=== PATIENT | female | born 1945 | race Hispanic/Latino ===

== ENCOUNTER 2018-06-15 09:13 | Observation (INO) | payer MEDICARE, BC ==
[2018-06-15 09:13] VITALS: BMI 21.9
[2018-06-15] MEDS ORDERED: Sodium Chloride 0.9% 1,000 ML IV ONE (09:38)
[2018-06-15] MEDS ORDERED: levETIRAcetam 500 MG in Sodium Chloride 0.9% 100 ML IVPB ONE (10:00)
[2018-06-15] MEDS ORDERED: Sodium Chloride 0.9% 1,000 ML ONE (10:21)
[2018-06-15 10:39] LABS: BASO % 0.7 % (0.0-2.0); EOS # 0.1 K/uL (0.0-0.7); EOS % 1.1 % (0.0-4.0); HEMOGLOBIN 12.6 g/dL (11.0-16.0); LYMPH # 1.5 K/uL (1.0-4.3); LYMPH % 26.1 % (20.0-40.0); MEAN CELL VOLUME 96.7 fL (81.0-99.0); MEAN CORPUSCULAR HEMOGLOBIN 32.6 pg (27.0-31.0); MEAN CORPUSCULAR HGB CONC 33.7 g/dL (33.0-37.0); MEAN PLATELET VOLUME 9.1 fL (7.2-11.7); MONO # 0.5 K/uL (0.0-0.8); MONO % 9.5 % (0.0-10.0); NEUT # 3.6 K/uL (1.8-7.0); NEUT % 62.6 % (50.0-75.0); NRBC % 0.2 % (0.0-2.0); RBC 3.86 Mil/uL (3.80-5.20); WHITE BLOOD COUNT 5.8 K/uL (4.8-10.8)
--- NOTE | 2018-06-15 10:41 | C.PDOC ---
History Of Present Illness 72 y/o female pt presents to the ER by EMS for multiple seizures. As per EMS, pt had 4 seizures in her [facility] when she was sitting on her chair. Pt has no head injury and on arrival, pt is postictal. Pt has no other associated sx or complaints at this time. Time Seen by Provider: 06/15/18 09:25 Chief Complaint (Nursing): Seizure History Per: Patient History/Exam Limitations: no limitations Recent Seizure Activity Began: Just Before Arrival Number Of Seizures: Multiple Length Of Seizures (Duration): Unknown Quality Of Seizure: Generalized Precipitating Factor(s): None Past Medical History Reviewed: Historical Data, Nursing Documentation, Vital Signs Vital Signs: Last Vital Signs Temp 97.5 F L 06/15/18 09:31 Pulse 67 06/15/18 09:31 Resp 16 06/15/18 09:31 BP 160/68 H 06/15/18 09:31 Pulse Ox 99 06/15/18 09:31 - Medical History PMH: Anxiety, Atrial Fibrillation, Bipolar Disorder, Cardia Arrhythmia, HTN, Hyperlipidemia, Hyperthyroidism, Hypothyroidism, Osteoporosis, Seizures Surgical History: No Surg Hx Family History: States: No Known Family Hx - Social History Hx Alcohol Use: No Hx Substance Use: No - Immunization History Hx Influenza Vaccination: Yes (02/25/2018) Review Of Systems Except As Marked, All Systems Reviewed And Found Negative. Constitutional: Negative for: Fever, Chills Eyes: Negative for: Vision Change Cardiovascular: Negative for: Chest Pain Respiratory: Negative for: Cough Gastrointestinal: Negative for: Nausea, Vomiting Neurological: Positive for: Other (multiple seizures [employer] in fci ) Physical Exam - Physical Exam Appears: Non-toxic, Confused, Other (able to answer simple questions ) Skin: Warm, Dry Head: Atraumatic, Normacephalic, No Tenderness, No Swelling, No Abrasion, No Laceration Eye(s): bilateral: Normal Inspection, PERRL, EOMI Neck: Normal ROM, Supple Chest: Symmetrical Cardiovascular: Rhythm Regular Respiratory: Normal Breath Sounds, No Rales, No Rhonchi, No Wheezing Gastrointestinal/Abdominal: Soft, No Tenderness Back: No CVA Tenderness Extremity: Normal ROM (x4), No Tenderness, No Calf Tenderness, Capillary Refill (<2 sec), No Swelling Neurological/Psych: Oriented x3, Normal Speech, Normal Cognition, Normal Motor, Normal Sensation Gait: Steady ED Course And Treatment - Laboratory Results Result Diagrams: 06/15/18 10:24 06/15/18 10:24 ECG: Interpreted By Me, Viewed By Me ECG Rhythm: Sinus Rhythm ECG Interpretation: Normal Interpretation Of ECG: nonspecific ST abnormality Rate From EC O2 Sat by Pulse Oximetry: 99 (RA) Pulse Ox Interpretation: Normal - CT Scan/US CT head Other Rad Studies (CT/US): Read By Radiologist, Radiology Report Reviewed CT/US Interpretation: Accession No. : [id number]. Patient Name / ID : RIVERA SANTIAGO / [id number]. Exam Date : 06/15/2018 11:16:46 ( Approved ). Study Comment : Sex / Age : F / 72Y. Creator : Niraj Villegas. Dictator : Elias Hoskins MD. Tree Topper : [employer] Superintendent : Elias Hoskins MD. Approver2 : Report Date : 06/15/2018 11:20:59. My Comment : . Date of service: 06/15/2018. PROCEDURE: CT HEAD WITHOUT CONTRAST. HISTORY: seizure. COMPARISON: None available. TECHNIQUE: Axial computed tomography images were obtained through the head/brain without intravenous contrast. Radiation dose: Total exam DLP = 1126.05 mGy-cm. This CT exam was performed using one or more of the following dose reduction techniques: Automated exposure control, adjustment of the mA and/or kV according to patient size, and/or use of iterative reconstruction technique. FINDINGS: HEMORRHAGE: No intracranial hemorrhage. BRAIN: No mass effect or edema. Scattered focal lucencies in the subcortical and periventricular white matter suggestive for chronic microvascular ischemic change. Prominent cerebellar atrophy.. VENTRICLES: Unremarkable. No hydrocephalus. CALVARIUM: Unremarkable. PARANASAL SINUSES: Unremarkable as visualized. No significant inflammatory changes. MASTOID AIR CELLS: Unremarkable as visualized. No inflammatory changes. OTHER FINDINGS: Intracranial arterial calcifications. IMPRESSION: Prominent cerebellar atrophy. Chronic microvascular ischemic changes. If symptoms persists, consider correlation with MRI. Medical Decision Making Medical Decision Making: Plans: -- chem lab -- blood work -- EKG -- CT head -- IV fluids -- ativan -- keppra -- left EJ IV Discuss with Dr. Stephenson. Dr. Stephenson accepted pt for telemtery and requested consult with Dr. Marci Estrada Discuss case with Dr. Estrada, agree with management. Disposition Discussed With Dr.: Segun Stephenson Doctor Will See Patient In The: Hospital Counseled Patient/Family Regarding: Studies Performed, Diagnosis - Disposition Disposition: HOSPITALIZED Disposition Time: 11:19 Condition: STABLE - POA Present On Arrival: None - Clinical Impression Clinical Impression: Intractable seizures - Scribe Statement The provider has reviewed the documentation as recorded by the Scribe Carolyn Do Provider Attestation: All medical record entries made by the Scribe were at my direction and personally dictated by me. I have reviewed the chart and agree that the record accurately reflects my personal performance of the history, physical exam, med [facility] decision making, and the department course for this patient. I have also personally directed, reviewed, and agree with the discharge instructions and disposition.
[2018-06-15 10:42] LABS: ALB/GLOB RATIO 1.5 (1.0-2.1); ALBUMIN 3.5 g/dL (3.5-5.0); ALT/SGPT 14 U/L (9-52); AST/SGOT 21 U/L (14-36); BLOOD UREA NITROGEN 15 mg/dL (7-17); GFR NON-AFRICAN AMERICAN > 60
--- NOTE | 2018-06-15 11:29 | CT ---
Date of service: 06/15/2018 PROCEDURE: CT HEAD WITHOUT CONTRAST. HISTORY: seizure COMPARISON: None available. TECHNIQUE: Axial computed tomography images were obtained through the head/brain without intravenous contrast. Radiation dose: Total exam DLP = 1126.05 mGy-cm. This CT exam was performed using one or more of the following dose reduction techniques: Automated exposure control, adjustment of the mA and/or kV according to patient size, and/or use of iterative reconstruction technique. FINDINGS: HEMORRHAGE: No intracranial hemorrhage. BRAIN: No mass effect or edema. Scattered focal lucencies in the subcortical and periventricular white matter suggestive for chronic microvascular ischemic change. Prominent cerebellar atrophy.. VENTRICLES: Unremarkable. No hydrocephalus. CALVARIUM: Unremarkable. PARANASAL SINUSES: Unremarkable as visualized. No significant inflammatory changes. MASTOID AIR CELLS: Unremarkable as visualized. No inflammatory changes. OTHER FINDINGS: Intracranial arterial calcifications. IMPRESSION: Prominent cerebellar atrophy. Chronic microvascular ischemic changes. If symptoms persists, consider correlation with MRI.
[2018-06-15 11:30] LABS: SQUAMOUS EPITHIAL < 1 /hpf (0-5); URINE BACTERIA RARE (<OCC); URINE BILIRUBIN NEGATIVE (NEGATIVE); URINE BLOOD NEGATIVE (NEGATIVE); URINE CLARITY Hazy (Clear); URINE COLOR Straw (YELLOW); URINE GLUCOSE (UA) NORMAL (Normal); URINE LEUKOCYTE ESTERASE 1+ Leu/uL (Negative); URINE PROTEIN NEGATIVE (NEGATIVE); URINE UROBILINOGEN NORMAL mg/dL (0.2-1.0)
--- NOTE | 2018-06-15 16:19 | RAD ---
Chest x-ray single frontal view HISTORY: Weakness. Comparison: None available. Findings: Diffuse increased interstitial lung markings. Focal nodular consolidative changes at the right costophrenic angle. Clinical correlation. Correlation with chest CT may be helpful. Tortuous ectatic aorta. Mild cardiomegaly. Degenerative changes in the spine and shoulders. Left-sided pacer device extending to the soft tissues of the left neck. Impression: Diffuse increased interstitial lung markings. Focal nodular consolidative changes at the right costophrenic angle. Clinical correlation. Correlation with chest CT may be helpful. Tortuous ectatic aorta. Mild cardiomegaly. Degenerative changes in the spine and shoulders. Left-sided pacer device extending to the soft tissues of the left neck.
--- NOTE | 2018-06-16 04:08 | HP ---
HISTORY OF PRESENT ILLNESS: I know her well from [facility]. She is a 72-year-old white female, who presented due to multiple seizures at the [facility]. She had four seizures in the skilled nursing, sitting in her chair. No head injury. She is postictal. No complaints at this time, in her bed at [address] [place] [address], 7 seizures, breakthrough seizures, multiple. She is pleasantly confused. PAST MEDICAL HISTORY: Anxiety, atrial fibrillation, bipolar disorder, cardiac arrhythmia, hypertension, high cholesterol, hypothyroidism, osteoporosis, and seizures. PAST SURGICAL HISTORY: No surgical history. FAMILY HISTORY: Unknown family history. SOCIAL HISTORY: No smoking, no drinking, no drugs. REVIEW OF SYSTEMS: No acute vision or hearing changes. She is a little sluggish from being postictal. No chest pain, no palpitations. No shortness of breath or cough. No abdominal pain, nausea, vomiting, constipation, or diarrhea. She has had multiple seizures and little bit slow, little bit awkward getting around and talking. PHYSICAL EXAMINATION: VITAL SIGNS: She has 97.5 temperature, 67 pulse, 16 respiratory rate, 160/68 blood pressure, and 99% O2 saturation. GENERAL: She is little bit confused, nontoxic, able to answer simple questions, but she is definitely out of it. SKIN: Warm and dry, no apparent rashes or ulcers appreciated. HEENT: Head is atraumatic and normocephalic, nontender. Extraocular muscles are intact. Pupils equal and reactive to light and accommodation. Throat is moist. NECK: Supple. HEART: Regular rate. Normal S1 and S2. LUNGS: Decreased breath sounds, but clear to auscultation. No wheezes, no rhonchi, no rales. ABDOMEN: Soft, nontender. Positive bowel sounds. No guarding. No rebound or CVA tenderness. EXTREMITIES: She can move all four extremities well. No edema. NEUROLOGIC: She is oriented x3 if you really hold it to it but she is definitely sluggish with speech but normal when she can talk. She has witnessed seizures, intractable seizures. She is here in the hospital, is in the observation level. LABORATORY DATA: Chest x-ray which showed diffuse increased interstitial lung markings, focal nodular consolidation change in the right costophrenic angle. I recommend a CAT scan of the chest, mild cardiomegaly. I will get a CAT scan of the chest. Head CT showed prominent cerebellar atrophy, chronic microvascular ischemic changes. She had blood test done. Urine was clean. She has a 138 sodium, potassium 3.9, BUN 50, creatinine 0.6, , sugar is 97, calcium is 9. Total bilirubin 0.3, AST is 21, ALT is 14, alk phos 57, total protein 5.9, albumin is 3.5. White count is 5.8, hemoglobin 12.6, hematocrit 37.2, and platelets 193. IMPRESSION AND PLAN: She is here for seizures. She had a consult with Neurology. She is now on Keppra and Lamictal as per Neurology. Seizure precautions, oxygen, diet, and I will get a CAT scan of the chest as recommended by the chest x-ray. Thank you very much. Segun Stephenson DO MTDQuirino
[2018-06-16] MEDS ORDERED: Levothyroxine 75 MCG TAB PO SCH (06:30)
[2018-06-16 08:58] VITALS: BP 146/80; RESP 20; TEMP 97.6; O2SAT 96
[2018-06-16 09:20] LABS: HEMOGLOBIN 13.9 g/dL (11.0-16.0); MEAN CELL VOLUME 96.3 fL (81.0-99.0); MEAN CORPUSCULAR HEMOGLOBIN 33.1 pg (27.0-31.0); MEAN CORPUSCULAR HGB CONC 34.4 g/dL (33.0-37.0); MEAN PLATELET VOLUME 8.5 fL (7.2-11.7); RBC 4.18 Mil/uL (3.80-5.20); RED CELL DISTRIBUTION WIDTH 12.9 % (11.5-14.5); WHITE BLOOD COUNT 5.1 K/uL (4.8-10.8)
--- NOTE | 2018-06-16 09:26 | CT ---
CT chest HISTORY: Abnormal chest x-ray. COMPARISON: X-ray dated 06/15/2018 TECHNIQUE: Multiple contiguous axial images were performed through the chest without the use of intravenous contrast. Subsequently, sagittal and coronal reformatted images were obtained. This CT exam was performed using one or more of the following dose reduction techniques: Automated exposure control, adjustment of the mA and/or kV according to patient size, and/or use of iterative reconstruction technique. Findings: Right lung: Linear atelectasis in the right middle lobe. Additional curvilinear areas of atelectasis and/or scarring more medially within the right lower lobe. More laterally in the right lower lobe in correlation with the recent chest x-ray, there is an ovoid focal area of consolidation best seen on series 3, image 70 measuring 2.4 x 1.2 centimeters. This is of uncertain clinical etiology and may represent focal consolidation versus focal scarring versus additional etiology. Continued interval follow-up is recommended to ensure resolution and stability and exclude underlying lesion. Left lung: Few mild scattered areas of nodular consolidation in the medial aspect of the left upper lobe. Additional mild atelectasis within the left lower lobe. Trachea thru central airways are patent. Few shotty axillary lymph nodes. Heterogeneity of the thyroid with a suggestion of a right thyroid nodule. Correlation with thyroid ultrasound may be helpful if clinically indicated. Aneurysmal prominence of the ascending thoracic aorta measuring up to 3.4 centimeters. Atherosclerotic calcification and plaque within the aorta. Coronary calcifications and or stents. Small to moderate pericardial effusion. No pleural effusion. Small hiatal hernia. Few distended loops of small bowel in the upper and mid abdomen. 3 millimeter nonobstructive calculus in the upper pole of the right kidney. Degenerative changes in the spine with a few scattered patchy areas of sclerosis. Left-sided battery device. Multiple prominent compression fracture/compression deformities seen throughout the cervical and thoracic spine some of which are severe. Clinical correlation. Impression: 1. Linear atelectasis in the right middle lobe. Additional curvilinear areas of atelectasis and/or scarring more medially within the right lower lobe. More laterally in the right lower lobe in correlation with the recent chest x-ray, there is an ovoid focal area of consolidation best seen on series 3, image 70 measuring 2.4 x 1.2 centimeters. This is of uncertain clinical etiology and may represent focal consolidation versus focal scarring versus additional etiology. Continued interval follow-up is recommended to ensure resolution and stability and exclude underlying lesion. 2. Few mild scattered areas of nodular consolidation in the medial aspect of the left upper lobe. Additional mild atelectasis within the left lower lobe. 3. Small to moderate pericardial effusion. 4. Multiple prominent compression fracture/compression deformities seen throughout the cervical and thoracic spine some of which are severe. Clinical correlation. 5. Heterogeneity of the thyroid with a suggestion of a right thyroid nodule. Correlation with thyroid ultrasound may be helpful if clinically indicated. Additional findings as above.
[2018-06-16 09:37] LABS: ALB/GLOB RATIO 1.5 (1.0-2.1); ALT/SGPT 14 U/L (9-52); AST/SGOT 24 U/L (14-36); BLOOD UREA NITROGEN 12 mg/dL (7-17); CALCIUM 9.1 mg/dl (8.6-10.4); GFR NON-AFRICAN AMERICAN > 60
[2018-06-16] MEDS ORDERED: Enoxaparin 30 mg Syringe SC SCH (10:00)
[2018-06-16 11:53] VITALS: PULSE 82
--- NOTE | 2018-06-16 16:03 | PN ---
DATE: 06/16/2018 SUBJECTIVE: She is resting comfortably in bed. She is pleasantly confused, that is her baseline. She had seizures, the last seizure she had on the way to the hospital. She is currently on Ativan, Evista, Keppra, Lamictal, Lopressor. I added Lovenox, Synthroid, and Zyprexa. That is the medicine she was back to the [facility] today. PHYSICAL EXAMINATION: VITAL SIGNS: She has 97.6 temperature, 82 pulse, 146/80 blood pressure, 20 respiratory rate, and 96% O2 saturation on room air. HEAD: Atraumatic, normocephalic. HEART: Regular rate. LUNGS: Decreased breath sounds, but clear. ABDOMEN: Soft. EXTREMITIES: No edema. NEUROLOGIC: She is pleasantly confused. ASSESSMENT AND PLAN: I will see her at the [facility]. At this time, I stopped the brivaracetam, the oxycodone, and the Crestor. We will follow her in the [facility]. She will be now on Keppra and Lamictal. Segun Stephenson DO MTDQuirino
--- NOTE | 2018-06-17 08:43 | CON ---
DATE: 06/15/2018 CHIEF COMPLAINT: Seizures. HISTORY OF PRESENT ILLNESS: This is a 72-year-old woman with a past medical history of bipolar disorder and seizure disorder on Lamictal and Briviact in the past, hypertension, hypothyroidism, who [facility], apparently for seizures, postictal, moves all extremities equally . CAT scan of the head showed no acute intracranial abnormalities, just progressive cerebellar atrophy. She was given a loading dose of Keppra in the hospital. She had breakthrough seizures. She is mildly dehydrated on her labs. PAST MEDICAL HISTORY: As above. SOCIAL HISTORY: No illicit drug abuse, smoking, or ETOH abuse. FAMILY HISTORY: Noncontributory. MEDICATIONS: Reviewed by nurse, per reconciliation sheet. REVIEW OF SYSTEMS: A 14-point review of system is negative except for the HPI. PHYSICAL EXAMINATION: GENERAL: The patient is sitting up in bed, no acute distress. VITAL SIGNS: Temperature 97.5, pulse rate 67, blood pressure 160/68, respiratory rate of 18, oxygen saturation 99% on room air. HEENT: Atraumatic, normocephalic. PERRLA. Extraocular muscles are intact. NECK: Supple. No JVD. No adenopathy. LUNGS: Clear to auscultation. No adventitious sounds. HEART: S1 and S2. Normal rate and rhythm. No murmurs, rubs, or gallops. ABDOMEN: Soft, nontender, nondistended. Bowel sounds present. EXTREMITIES: No clubbing, no cyanosis. Peripheral pulses 2+ felt bilaterally. NEUROLOGICAL: The patient is alert and oriented to person and place, month and year. Speech is fluent without any errors. Recall after 5 minutes is 0/3. Poor attention span. Slow thought process. Cranial nerves II through XII intact. Motor exam: Moves all extremities equally. Toes are downgoing. Sensory exam: Light touch, pinprick, proprioception, and vibration intact. DTRs are 2+ throughout, 1 at both knees and ankles. Coordination: [id number] intact. No dysmetria noted. IMPRESSION: Breakthrough seizure from underlying history of chronic seizure disorder as well as history of bipolar disorder. PLAN: At this time, recommend to continue her home dose of Lamictal 100 mg p.o. b.i.d. which will help with seizure events. She was given one low dose of Keppra in the hospital. Recommend to possibly keep her on home Briviact as she was receiving at [facility]. At this time, while she is in the hospital, we will continue with 500 IV every 12 hours of Keppra as well as Lamictal p.o. Once again, thank you for this consult. We will recommend an EEG as well. Erik Estrada MD
--- NOTE | 2018-06-17 17:25 | CARD ---
APPROVED REPORT Date of service: 06/15/2018 EKG Measurement Heart [id number] [place] [id number] <Conclusion> Normal sinus rhythm Nonspecific ST abnormality Abnormal ECG
== END 2018-06-16 13:13 ==
LOC: C.ER 09:13 → C.9E 11:16 → C.6T 14:08
PROVIDERS: ADMIT Family Medicine; ATTEND Family Medicine
DX: G40.919 Epilepsy, unspecified, intractable, without status epilepticus (principal); E86.0 Dehydration; E03.9 Hypothyroidism, unspecified; I10 Essential (primary) hypertension; F31.9 Bipolar disorder, unspecified; I48.91 Unspecified atrial fibrillation; M81.0 Age-related osteoporosis without current pathological fracture; E78.5 Hyperlipidemia, unspecified; E78.00 Pure hypercholesterolemia, unspecified
CPT/HCPCS: 36415; 70450; 71045; 71250; 80053; 81001; 82948; 85025; 85027; 93005; 96374; 97116; 97162; 99285; G0378; G8978; G8979; J1953; J2060; J7030